=== PATIENT | male | born 1935 | race Caucasian/White ===

== ENCOUNTER 2016-07-15 12:30 | Observation (INO) ==
[2016-07-15 12:57] LABS: MANUAL DIFF NEEDED? NO
[2016-07-15 12:59] LABS: BASO% 0.2 % (0.0-0.8); EOS# 0.09 X1000 (0.0-0.7); EOS% 0.7 % (0.0-10.0); HEMATOCRIT 53.4 % (42.0-52.0); HEMOGLOBIN 18.2 g/dL (14.0-18.0); IMM GRAN# 0.07 X1000 (0.0-0.04); IMM GRAN% 0.6 % (0.0-0.5); LYMPH# 1.48 X1000 (1.2-3.4); LYMPH% 12.2 % (20.5-51.1); MCH 31.5 PG (27-31); MCHC 34.1 g/dL (33-37); MCV 92.5 FL (81-99); MONO# 1.11 X1000 (0.11-0.59); MONO% 9.1 % (1.7-9.3); MPV 10.3 FL (7.4-10.4); NEUT% 77.2 % (42.2-75.2); PLT 401 X1000 (130-400); RBC 5.77 XMIL (4.7-6.1)
[2016-07-15 13:35] LABS: ALBUMIN 4.6 g/dL (3.5-5.0); CALCIUM 10.3 mg/dL (8.8-10.2); POTASSIUM 3.4 mmol/L (3.5-5.1); TOTAL BILIRUBIN 0.9 mg/dL (0.20-1.00); TOTAL PROTEIN 7.5 g/dL (6.3-8.3)
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
[2016-07-15 14:05] LABS: INR 0.87 (0.86-1.15); PROTIME 12.2 Seconds (12.1-15.5)
--- NOTE | 2016-07-15 14:13 | EKG Report ---
Test Performed on : 07/15/2016 2:11:07 PM Test Reason : cp Blood Pressure : / mmHG Vent. Rate : 072 BPM Atrial Rate : 072 BPM P-R Int : 182 ms QRS Dur : 080 ms QT Int : 412 ms P-R-T Axes : 000 017 018 degrees QTc Int : 451 ms Normal sinus rhythm. Septal infarct , age undetermined Abnormal ECG No previous ECGs available Unconfirmed Result
[2016-07-15] MEDS ORDERED: HYDROCODONE/APAP 7.5-325/15 ML PO ONE (15:02)
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
[2016-07-15] MEDS ORDERED: ZOFRAN IV PRN (15:44)
[2016-07-15] MEDS ORDERED: TYLENOL PO PRN (15:44)
[2016-07-15] MEDS ORDERED: NS 1,000 ML IV ONE (15:44)
[2016-07-15] MEDS ORDERED: MOVANTIK PO PRN (15:52)
[2016-07-15] MEDS ORDERED: NS 1,000 ML IV SCH (17:22)
[2016-07-15] MEDS ORDERED: NORCO-10 PO PRN (17:23)
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
[2016-07-15] MEDS: MORPHINE IV PRN (18:52)
[2016-07-15] MEDS ORDERED: NORCO-7.5 PO SCH (20:00)
[2016-07-15] MEDS: DUONEB (A & A) INH SCH (20:10)
[2016-07-16] MEDS: DUONEB (A & A) INH SCH ×2 (03:36→07:39)
[2016-07-16] MEDS: MORPHINE IV PRN (05:24)
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
[2016-07-16 12:16] VITALS: BP 157/68
== END 2016-07-16 15:01 | disposition home or self-care (01) ==
LOC: P.ED 12:30 → INTOOBSV 16:25 → 4N 16:25
PROVIDERS: ADMIT Surgery; ATTEND Surgery